=== PATIENT | female | born 1990 | race Caucasian/White ===

== ENCOUNTER 2016-08-27 18:08 | Emergency (ER) ==
[2016-08-27 18:11] VITALS: BP 113/69; TEMP 98.1; BMI 30.2
--- NOTE | 2016-08-27 18:23 | ED.PDOC ---
General ED Provider: Dr. KULWINDER GAO JR Chief Complaint: Earache Stated Complaint: pain to rt ear--feels clogged with alot of pressure[ End ] 98.1 91 16 98% 113/69 since 629 Time Seen by Physician: 18:16 Mode of Arrival: Walk-In Information Source: Patient Exam Limitations: No limitations Nursing and Triage Documentation Reviewed and Agree: No Review of Systems - Review Of Systems Constitutional: Reports: No symptoms Eyes: Reports: No symptoms Ears, Nose, Mouth, Throat: Reports: Ear pain (left ear fullness"feels like it is all full of wax tried q tip) Respiratory: Reports: No symptoms Cardiac: Reports: No symptoms GI: Reports: No symptoms : Reports: No symptoms Musculoskeletal: Reports: No symptoms Skin: Reports: No symptoms Neurological: Reports: No symptoms Endocrine: Reports: No symptoms Hematologic/Lymphatic: Reports: No symptoms All Other Systems: Other Past Medical History - Past Medical History Previously Healthy: Yes Endocrine: Reports: None Cardiovascular: Reports: None Respiratory: Reports: None Hematological: Reports: None Gastrointestinal: Reports: None Genitourinary: Reports: None Neuro/Psych: Reports: None Musculoskeletal: Reports: None Cancer: Reports: None Last Menstrual Period: first of aug - Surgical History General Surgical History: Reports: , Cholecystectomy - Family History Family History: Reports: Unknown - Social History Smoking Status: Never smoker Hx Substance Use: No Alcohol Screening: None Physical Exam - Physical Exam Appearance: Well-appearing Pain Distress: Mild Eyes: VJ, EOMI, Conjunctiva clear ENT: Ears normal, Nose normal, Oropharynx normal, TMs Occluded (left tm not visible minimal cerumen coating TM and surrounding area) Neck: Supple Respiratory: Airway patent Cardiovascular: RRR Critical Care Note - Critical Care Note Total Time (mins): 0 Course - Course Vital Signs: Temp Pulse Resp BP Pulse Ox 08/27/16 18:09 98.1 F 91 H 16 113/69 98 Departure - Departure Time of Disposition: 18:35 Disposition: HOME SELF-CARE Discharge Problem: Cerumen impaction Qualifiers: Laterality: right Qualifier Code: (H61.21) Impacted cerumen, right ear Instructions: Cerumen Impaction (ED) Condition: Good Pt referred to PMD for follow-up: Yes Additional Instructions: may use 2-8 drops of sweet oil once a week as needed for excess cerumen return if redness swelling increased pain or drainage Prescriptions: Neomycin/Polymyxin B/Hc Otic [Cortisporin Otic Susp] 4 drop OT Q6H #1 bottle Allergies/Adverse Reactions: Allergies butorphanol tartrate [From Stadol] Adverse Reaction (Verified 08/27/16 18:12) ketorolac tromethamine [From Toradol] Adverse Reaction (Verified 08/27/16 18:12) tramadol HCl [From Ultram] Adverse Reaction (Verified 08/27/16 18:12) Home Medications: Ambulatory Orders Neomycin/Polymyxin B/Hc Otic [Cortisporin Otic Susp] 4 drop OT Q6H #1 bottle
== END 2016-08-27 18:43 | disposition home or self-care (01) ==
LOC: ED 18:08
DX: H61.21 Impacted cerumen, right ear (principal); H92.01 Otalgia, right ear
CPT/HCPCS: 99282

== ENCOUNTER 2017-05-22 11:53 | Outpatient (CLI) ==
--- NOTE | 2017-05-22 14:49 | MRI ---
EXAM: Brain MRI without contrast. HISTORY: Headaches. COMPARISON: None. TECHNIQUE: Multiplanar, multisequence MR images were acquired of the brain without contrast. FINDINGS: The midline structures are central and the craniocervical junction is unremarkable. The v entricles and sulci are normal in size and configuration. There are no abnormal extra-axial fluid co llections. The brain parenchyma has no restricted diffusion to suggest acute hypoperfusion or infarction. There are no abnormal T2 hyperintensities or foci of dark gradient echo signal. A slightly prominent sulc us is noted along the anterolateral left frontal lobe. The corpus callosum has a normal configuratio n. The pituitary gland is unremarkable. There are no intraorbital masses. There is mild to moderate adenoidal hypertrophy which is considere d normal for the patient's age. Paranasal sinuses, middle ears and mastoids are unremarkable. Flow voids are present in the major intracranial arteries. There is dolichoectasia of the cavernous segment of the left internal carotid artery. Dural venous sinuses are patent. IMPRESSION: No intracranial mass, hemorrhage or acute cerebral infarct. Negative brain MRI.
== END 2017-05-22 11:54 | disposition home or self-care (01) ==
LOC: RAD 11:53
PROVIDERS: ATTEND Internal Medicine
DX: G43.809 Other migraine, not intractable, without status migrainosus (principal)

== ENCOUNTER 2017-08-13 17:01 | Emergency (ER) ==
[2017-08-13 17:06] VITALS: BP 125/88; TEMP 98.4; BMI 26.5
--- NOTE | 2017-08-13 18:13 | ED.PDOC ---
General ED Provider: Dr. ANGELICA ELMORE Chief Complaint: Ankle Pain/Injury Stated Complaint: RIGHT ANKLE PAIN, RIGHT FOOT PAIN Time Seen by Physician: 17:00 (TWISTED THE ANKLE LAST NIGHT SEEN WITH DARÍO AT ALL TIMES ) Mode of Arrival: Walk-In Information Source: Patient Primary Care Provider: MERCED ARGUELLES Referred to ED by: Other (E/D TECH PRESENT AT ALL TIMES ) Nursing and Triage Documentation Reviewed and Agree: Yes Reviewed sepsis parameters & appropriate labs ordered?: Yes System Inflammatory Response Syndrome: Not Applicable Sepsis Protocol: For patient's 13 years and over: Temp is 96.8 and below OR 101 and greater Pulse >90 BPM Resp >20/minute Acutely Altered Mental Status Are patient's symptoms suggestive of a new infection, such as: -Pneumonia -Skin, Soft Tissue -Endocarditis -UTI -Bone, Joint Infection -Implantable Device -Acute Abdominal Infection -Wound Infection -Meningitis -Blood Stream Catheter Infection -Unknown System Inflammatory Response Syndrome: Not Applicable Musculoskeletal Complaint Exam - Ankle/Foot Complaint/Exam Location of Injury: Reports: Right, Ankle, Foot Mechanism of Injury: Reports: Trauma ( TWISTED ) Onset/Duration: 1 DAY Symptoms Are: Reports: Still present Onset of Pain: Reports: Hours Initial Severity: Moderate Current Severity: Moderate Location: Reports: Discrete Character: Reports: Dull Alleviating: Reports: Rest Aggravating: Reports: Movement Able to Bear Weight: Yes Associated Signs and Symptoms: Denies: Swelling, Redness, Bruising, Fever, Weakness, Numbness, Tingling Gout Risk Factors: Reports: None Related Surgical History: Reports: None Tenderness: Present: Lateral malleolus, Midfoot Limited Range of Motion: Present: Inversion, Eversion Differential Diagnosis: Closed Fracture, Sprain, Strain Review of Systems - Review Of Systems Constitutional: Reports: No symptoms Eyes: Reports: No symptoms Ears, Nose, Mouth, Throat: Reports: No symptoms Respiratory: Reports: No symptoms Cardiac: Reports: No symptoms GI: Reports: No symptoms : Reports: No symptoms Musculoskeletal: Reports: Joint pain (ANKLE RIGHT) Skin: Reports: No symptoms Neurological: Reports: No symptoms Endocrine: Reports: No symptoms Hematologic/Lymphatic: Reports: No symptoms All Other Systems: Reviewed and Negative Past Medical History - Past Medical History Previously Healthy: Yes Endocrine: Reports: None Cardiovascular: Reports: None Respiratory: Reports: None Hematological: Reports: None Gastrointestinal: Reports: None Genitourinary: Reports: None Neuro/Psych: Reports: None Musculoskeletal: Reports: None Cancer: Reports: None Last Menstrual Period: last month - Surgical History General Surgical History: Reports: , Cholecystectomy - Family History Family History: Reports: Unknown - Social History Smoking Status: Never smoker Hx Substance Use: No Alcohol Screening: None Physical Exam - Physical Exam Appearance: Well-appearing, No pain distress, Well-nourished Eyes: VJ, EOMI, Conjunctiva clear ENT: Ears normal, Nose normal, Oropharynx normal Respiratory: Airway patent, Breath sounds clear, Breath sounds equal, Respirations nonlabored Cardiovascular: RRR, Pulses normal, No rub, No murmur GI/: Soft, Nontender, No masses, Bowel sounds normal, No Organomegaly Musculoskeletal: Limited ROM (ANKLE RIGHT) Skin: Warm, Dry, Normal color Neurological: Sensation intact, Motor intact, Reflexes intact, Cranial nerves intact, Alert, Oriented Psychiatric: Affect appropriate, Mood appropriate Critical Care Note - Critical Care Note Total Time (mins): 0 Course - Course Orders, Labs, Meds: Orders Category Date Time Status ANKLE, RIGHT MIN 3 VIEWS Stat RADS 08/13/17 17:51 Ordered FOOT, RIGHT 3 VIEWS Stat RADS 08/13/17 17:51 Ordered Vital Signs: Temp Pulse Resp BP Pulse Ox 08/13/17 17:02 98.4 F 98 H 16 125/88 98 Departure - Departure Time of Disposition: 19:00 Disposition: HOME SELF-CARE Discharge Problem: Ankle pain Sprain of foot, right Qualifiers: Encounter type: initial encounter Qualified Code(s): S93.601A - Unspecified sprain of right foot, initial encounter Instructions: Ankle Sprain (ED) Condition: Good Pt referred to PMD for follow-up: Yes IPMP verified?: Yes Additional Instructions: Please call your Family Physician as soon as possible to schedule a follow-up appointment. Allergies/Adverse Reactions: Allergies ketorolac tromethamine [From Toradol] Adverse Reaction (Verified 08/13/17 17:07) tramadol HCl [From Ultram] Adverse Reaction (Verified 08/13/17 17:07) Home Medications: Ambulatory Orders 1 [No Reported Medications] 08/13/17
--- NOTE | 2017-08-13 18:34 | DI ---
EXAM: Right ankle, three views, 08/13/2017 HISTORY: Pain COMPARISON: None. FINDINGS / IMPRESSION: Extensive lateral soft tissue swelling. The underlying osseous structures appear intact. There is no evidence of fracture or dislocation. The Achilles insertion site is intact. No acute post traumatic osseous abnormality.
--- NOTE | 2017-08-13 18:35 | DI ---
EXAM: Right foot three view HISTORY: Right foot pain COMPARISON: None available at the time of dictation. FINDINGS: No definitive right foot acute fracture or dislocation is identified. Joint spaces appear preserved. No definitive soft tissue radiodense foreign bodies are identified. IMPRESSION: No right foot acute fracture or dislocation identified.
== END 2017-08-13 18:57 | disposition home or self-care (01) ==
LOC: ED 17:01
DX: S93.601A Unspecified sprain of right foot, initial encounter (principal); X50.1XXA Overexertion from prolonged static or awkward postures, initial encounter
CPT/HCPCS: 99283